=== PATIENT | male | born 1975 | race Two or more races ===

== ENCOUNTER 2023-04-22 15:11 | Emergency (ER) | payer BC, OTHER ==
[2023-04-22 16:20] VITALS: BP 160/90; PULSE 114; RESP 16; TEMP 98.3; BMI 27.7
[2023-04-22] MEDS ORDERED: CEPHALEXIN MONOHYDRATE 500 MG CAPSULE (UD) PO ONE (18:18)
[2023-04-22] MEDS ORDERED: IBUPROFEN 600 MG TABLET (FP) PO ONE ×3 (18:18→18:23)
[2023-04-22] MEDS ORDERED: CEPHALEXIN MONOHYDRATE 500 MG CAPSULE (UD) ONE (18:22)
== END 2023-04-22 19:32 | disposition home or self-care (01) ==
LOC: JERFT 15:11
PROC: 0HQGXZZ Repair Left Hand Skin, External Approach (ICD-10-PCS; principal; 2023-04-22)
PROC: 2W3DX1Z Immobilization of Left Lower Arm using Splint (ICD-10-PCS; 2023-04-22)
DX: S62.613A Displaced fracture of proximal phalanx of left middle finger, initial encounter for closed fracture (principal); S61.213A Laceration without foreign body of left middle finger without damage to nail, initial encounter; W23.1XXA Caught, crushed, jammed, or pinched between stationary objects, initial encounter; Y92.9 Unspecified place or not applicable
CPT/HCPCS: 73130-TC-LT-FY; 82962; 99284-25

== ENCOUNTER 2023-04-25 11:55 | Emergency (ER) | payer BC, OTHER ==
[2023-04-25 12:08] VITALS: BP 128/91; PULSE 91; RESP 18; TEMP 97.6; BMI 27.7
== END 2023-04-25 13:29 | disposition home or self-care (01) ==
LOC: JERFT 11:55
DX: Z48.00 Encounter for change or removal of nonsurgical wound dressing (principal)
CPT/HCPCS: 99282-25